=== PATIENT | male | born 1980 | race Caucasian/White ===

== ENCOUNTER 2021-07-25 01:12 | Emergency (ER) | payer OTHER ==
[~2021-07-25] VITALS: Ht 172.7 cm; Wt 73.3 kg
[2021-07-25] MEDS ORDERED: ONDANSETRON ODT 4 MG PO ONE (02:00)
[2021-07-25] MEDS ORDERED: ONDANSETRON ODT 4 MG ONE (02:42)
--- NOTE | 2021-07-25 02:44 | NUR ---
PT MEDICATED PER JAN 30 RIGHTS VERIFIED
[2021-07-25 03:17] VITALS: BP 108/71
--- NOTE | 2021-07-25 03:23 | NUR ---
TASK RN: PT STATES FEELING MUCH BETTER AFTER ZOFRAN ADMIN. STATES ABLE TO DRINK FLUID WITHOUT DIFFICULTY. PT STATES UNDERSTANDING OF D/C INSTRUCTIONS, GIVEN PAPER FOR MED ASSISTANCE. STEADY AMBULATING
== END 2021-07-25 03:25 | disposition home or self-care (01) ==
LOC: ED 02:05
DX: L20.84 Intrinsic (allergic) eczema (principal); B35.3 Tinea pedis; F10.10 Alcohol abuse, uncomplicated; Z72.9 Problem related to lifestyle, unspecified; F17.200 Nicotine dependence, unspecified, uncomplicated; Y90.0 Blood alcohol level of less than 20 mg/100 ml
CPT/HCPCS: 99283; Q0162

== ENCOUNTER 2021-08-14 11:57 | Emergency (ER) | payer MEDICAID, OTHER ==
[~2021-08-14] VITALS: Ht 172.7 cm; Wt 73.8 kg
[2021-08-14 12:03] VITALS: BP 113/79
--- NOTE | 2021-08-14 12:06 | NUR ---
HVAC SERVICES PROFESSIONAL: EKG IN TRIAGE
[2021-08-14] MEDS ORDERED: SODIUM CHLORIDE FLUSH 10ML SYR IVF ONE (12:30)
[2021-08-14] MEDS ORDERED: SODIUM CHLORIDE 0.9% 1,000ML IVBOLUS ONE (12:30)
[2021-08-14 12:43] LABS: BASOPHILS % (AUTO) 1 % (0-1); EOSINOPHILS % (AUTO) 0 % (1-7); LYMPHOCYTES % (AUTO) 17 % (22-44); MEAN CORPUSCULAR HGB CONC 34.4 g/dL (33.2-36.2); MEAN PLATELET VOLUME 7.1 fL (7.4-10.4); MONOCYTES % (AUTO) 6 % (2-9); NEUTROPHILS % (AUTO) 76 % (42-75); PLATELET COUNT 355 x10^3/uL (130-400); RED BLOOD COUNT 4.74 x10^6/uL (4.38-5.82); RED CELL DISTRIBUTION WIDTH 13.6 % (9.4-14.8)
[2021-08-14 12:52] LABS: ANION GAP 10 mmol/L (5-15); CHLORIDE 108 mmol/L (98-107)
[2021-08-14 12:56] LABS: AMPHETAMINE SCREEN, URINE Negative (Negative); BARBITURATE SCREEN, URINE Negative (Negative); BENZODIAZEPINE SCREEN, URINE Negative (Negative); CANNABINOID SCREEN, URINE Positive (Negative); COCAINE SCREEN, URINE Negative (Negative); METHADONE SCREEN, URINE Negative (Negative); OPIATE SCREEN, URINE Positive (Negative)
== END 2021-08-14 14:26 | disposition home or self-care (01) ==
LOC: ED 12:10
DX: L03.115 Cellulitis of right lower limb (principal); L03.116 Cellulitis of left lower limb; R00.0 Tachycardia, unspecified
CPT/HCPCS: 36415; 80048; 80307; 82040; 84443; 85025; 93005; 99284